=== PATIENT | male | born 1990 | race Caucasian/White ===

== ENCOUNTER 2025-03-29 03:27 | Emergency (ER) | payer OTHER, SELFPAY ==
[2025-03-29 03:32] VITALS: BP 151/95; PULSE 65; RESP 15; TEMP 35.7; O2SAT 100; BMI 34.4
--- NOTE | 2025-03-29 04:12 | ED.WOUNDLAC ---
HPI - Wound/Laceration General Chief Complaint: Wound/Laceration Stated Complaint: R Index Finger Laceration Time Seen by Provider: 03/29/25 03:30 Source: patient Mode of arrival: Ambulatory History of Present Illness HPI narrative: 34-year-old gentleman works on a [employer] was cleaning glass when his index finger got caught through the glass machine that was cleaning it. His last tetanus was 2 years ago. He is able to move his finger in all direction without any issues. Other than what is stated 14 point review of system is negative Related Data Previous Rx's Medication Instructions Recorded cephalexin 500 mg capsule 500 mg PO Q6H #28 caps 03/29/25 Allergies Allergy/AdvReac Type Severity Reaction Status Date / Time No Known Drug Allergies Allergy Verified 03/29/25 03:31 Review of Systems Review of Systems ROS Unobtainable: All systems reviewed & are unremarkable except as noted in HPI and below Patient History Social History Smoking Status: Current every day smoker Smoking Status: Current every day smoker tobacco type: vaping Exam Narrative Exam Narrative: GENERAL: [34] year old patient appears stated age. Well-developed patient, in mild distress. HEAD: Atraumatic. Normocephalic. EYES: Pupils equal round and reactive. Extraocular motions intact. No scleral icterus. No injection or drainage. EXTREMITIES: No edema or joint tenderness. NEURO: AOx3. GCS 15 nonfocal neuro exam moving all his extremities spontaneously SKIN: R index finger dorsum metacarpal superficial longitudinal 1.5x1.5cm, motor/sensory +2 rad pulse cap refill <2secs Initial Vital Signs Initial Vital Signs: Vital Signs Temperature 96.3 F L 03/29/25 03:32 Pulse Rate 65 03/29/25 03:32 Respiratory Rate 15 03/29/25 03:32 Blood Pressure 151/95 H 03/29/25 03:32 Pulse Oximetry 100 03/29/25 03:32 Oxygen Delivery Method Room Air 03/29/25 03:32 Procedures Laceration Repair Laceration 1: Time of procedure: 04:18 Site: other (R index finger) Side (If applicable): right Size (cm): 1.5 Description: linear Depth: simple, single layer Local Anesthetic: lidocaine 1% and with epi Amount of anesthesia used (mL): 2 Course Vital Signs Vital signs: Vital Signs - 8 hr 03/29/25 03:32 Temperature 96.3 F L Pulse Rate 65 Respiratory Rate 15 Blood Pressure 151/95 H Pulse Oximetry 100 Oxygen Delivery Method Room Air MDM - Wound/Laceration MDM Narrative Medical decision making narrative: Vital signs nurse triage note medication list previous ER visits in all imaging modalities reviewed. Eight stitches single interrupted using 5 0 Ethicon x2 packet used patient tolerated procedure with no complications. Suture removal in 10-14 days with PCP. Tetanus already up-to-date. Differential diagnosis finger laceration, foreign body, cellulitis. Discharge Plan Departure Patient Disposition: Home Clinical Impression: Finger laceration Qualifiers: Encounter type: initial encounter Finger: index finger Damage to nail status: without damage Foreign body presence: without foreign body Laterality: right Qualified Code(s): S61.210A - Laceration without foreign body of right index finger without damage to nail, initial encounter Instructions: DI for Laceration Repair Activity Restrictions/Additional Instructions: Return with new or worsening symptoms. Suture removal in 10-14 days with PCP. Take medication as directed. Prescriptions: New cephalexin 500 mg capsule 500 mg PO Q6H Qty: 28 0RF Stand Alone Forms: Patient Portal/API/Survey
[2025-03-29] MEDS: BACITRACIN OINT 0.9 GM PCKT 1 APPLIC TOP (04:37)
== END 2025-03-29 04:42 | disposition home or self-care (01) ==
PROVIDERS: Emergency Provider Family Medicine
DX: S61.210A Laceration without foreign body of right index finger without damage to nail, initial encounter (principal); W31.89XA Contact with other specified machinery, initial encounter; Y93.H9 Activity, other involving exterior property and land maintenance, building and construction; Y92.814 Boat as the place of occurrence of the external cause; Y99.0 Civilian activity done for income or pay
CPT/HCPCS: 12001; 99282; 99283